=== PATIENT | male | born 1935 | race Caucasian/White ===

== ENCOUNTER 2021-05-24 10:15 | Emergency (ER) | payer MEDICARE ==
[~2021-05-24] VITALS: Ht 172.7 cm; Wt 70.3 kg
[~2021-05-24 10:15] MED LIST: AUGMENTIN 875 M1 TAB PO; CIPRODEX 0.3%-7.5 ML OT
[2021-05-24 11:03] LABS: BASO % 0.2 % (0.0-1.0); EOS # 0.1 10*3/uL (0.0-0.4); EOS % 0.6 % (1.0-4.0); HEMATOCRIT 46.7 % (42.0-52.0); LYMPH # 1.2 10*3/uL (1.3-4.4); LYMPH % 14.1 % (27.0-41.0); MEAN CELL VOLUME 97.7 fl (80.0-94.0); MEAN CORPUSCULAR HGB 33.1 pg (27.0-31.0); MEAN CORPUSCULAR HGB CONC 33.8 g/dl (33.0-37.0); MEAN PLATELET VOLUME 12.1 fl (9.6-12.3); MONO # 0.7 10*3/uL (0.1-1.0); MONO % 8.8 % (3.0-9.0); NEUT # 6.3 10*3/uL (2.3-7.9); NEUT % 75.7 % (47.0-73.0); PLATELET COUNT AUTOMATED 154 10*3/uL (130-400); RED BLOOD COUNT 4.78 10*6/uL (4.50-5.90); RED CELL DISTRI WIDTH 12.4 % (0-14.5); WHITE BLOOD COUNT 8.3 10*3/uL (4.8-10.8)
[2021-05-24 11:19] LABS: ALBUMIN 4.2 gm/dl (3.1-4.5); CREATININE 1.42 mg/dL (0.70-1.30); POTASSIUM 4.2 mmol/L (3.5-5.1); TOTAL PROTEIN 7.4 gm/dL (6.4-8.2)
[2021-05-24 12:19] LABS: BILIRUBIN Negative (Negative); BLOOD Negative (Negative); CLARITY Clear (Clear); COLOR Yellow (Yellow); GLUCOSE 3+ (Negative); KETONE 2+ (Negative); LEUKO ESTERASE Negative (Negative); NITRITE Negative (Negative); PH 5.5 (4.5-8.0)
[2021-05-24 12:37] LABS: EPITHELIAL CELLS 0-2; WBC 0-2 wbc/hpf (0-5)
== END 2021-05-24 12:46 | disposition home or self-care (01) ==
LOC: ED 10:15
PROVIDERS: Family Medicine
DX: Z00.8 Encounter for other general examination (principal); Z91.040 Latex allergy status

== ENCOUNTER 2022-12-04 15:50 | Emergency (ER) | payer MEDICARE ==
[~2022-12-04] VITALS: Ht 180.3 cm; Wt 115.7 kg
[2022-12-04] MEDS ORDERED: TYLENOL325 M1 PO (17:49)
[2022-12-04] MEDS ORDERED: ATIVAN0.5 MG PO (17:50)
[2022-12-04] MEDS ORDERED: LIPITOR20 MG PO (17:51)
[2022-12-04] MEDS ORDERED: CALCIUM CARBON600 M5 PO (17:53)
[2022-12-04] MEDS ORDERED: CELEXA10 MG PO (17:54)
[2022-12-04] MEDS ORDERED: COLACE100 MG PO (17:55)
[2022-12-04] MEDS ORDERED: CYCLOSPORINE OU (17:58)
[2022-12-04] MEDS ORDERED: DIGOXIN125 MCG PO (18:00)
[2022-12-04] MEDS ORDERED: DULCOLAX10 M1 R (18:02)
[2022-12-04] MEDS ORDERED: ELIQUIS5 M1 PO (18:15)
[2022-12-04] MEDS ORDERED: FISH OIL 1,0001 EAC3 PO (18:16)
[2022-12-04] MEDS ORDERED: FLEET ENEMA 13133 ML R (18:18)
[2022-12-04] MEDS ORDERED: MEMANTINE HCL5 MG PO (18:19)
[2022-12-04] MEDS ORDERED: METFORMIN HYD1000 MG PO (18:21)
[2022-12-04] MEDS ORDERED: LOPRESSOR25 MG PO (18:22)
[2022-12-04] MEDS ORDERED: MILK OF MA400 MG/5 M PO (18:24)
[2022-12-04] MEDS ORDERED: MIRALAX17 GM PO (18:25)
[2022-12-04] MEDS ORDERED: MIRTAZAPINE7.5 MG PO (18:27)
[2022-12-04] MEDS ORDERED: OLANZAPINE5 MG PO (18:28)
[2022-12-04] MEDS ORDERED: OMEPRAZOLE20 M3 PO (18:29)
[2022-12-04] MEDS ORDERED: PERCOCET 5-3251 EACH PO (18:31)
[2022-12-04] MEDS ORDERED: DAILY VALUE1 EACH PO (18:32)
[2022-12-04] MEDS ORDERED: TYLENOL EXTRA500 MG PO (18:33)
[2022-12-04] MEDS ORDERED: VISTARIL25 MG PO (18:35)
[2022-12-04] MEDS ORDERED: VITAMIN D3125 MCG PO (18:37)
== END 2022-12-04 17:15 | disposition admitted as inpatient to this hospital (09) ==
LOC: ED 15:50
DX: Z04.6 Encounter for general psychiatric examination, requested by authority (principal); Z20.822 Contact with and (suspected) exposure to COVID-19